=== PATIENT | male | born 1940 | race Hispanic/Latino ===

== ENCOUNTER → 2018-07-20 | Day surgery (SDC) | payer MEDICARE ==
[2018-07-19 12:33] LABS: BASOPHILS % 0.6 % (0.0-1.0); EOSINOPHILS # (AUTO) 0.3 (0.0-0.4); EOSINOPHILS % 4.4 % (0.0-6.0); HEMATOCRIT 39.2 % (38.2-49.6); HEMOGLOBIN 12.8 g/dL (14.0-18.0); LYMPHOCYTES # (AUTO) 1.2 (1.0-3.2); MEAN CORPUSCULAR HEMOGLOBIN 32.4 pg (28-32); MEAN CORPUSCULAR HGB CONC 32.7 g/dL (31-35); MEAN CORPUSCULAR VOLUME 99.2 fL (81-99); MONOCYTES # (AUTO) 0.5 (0.2-0.8); MONOCYTES % 8.4 % (4.4-11.3); NEUTROPHILS # (AUTO) 4.4 (2.1-6.9); NEUTROPHILS % 68.3 % (38.7-80.0); PLATELET COUNT 181 x10e3/uL (140-360); RED BLOOD COUNT 3.95 x10e6/uL (4.3-5.7); RED CELL DISTRIBUTION WIDTH 14.2 % (11.7-14.4)
[2018-07-19 12:56] LABS: ANION GAP 12.2 mmol/L (8-16); BLOOD UREA NITROGEN 11 mg/dL (7-26); BUN/CREATININE RATIO 14 (6-25); CALCIUM 9.7 mg/dL (8.4-10.2); CARBON DIOXIDE 27 mmol/L (22-29); CHLORIDE 104 mmol/L (98-107); CREATININE, SERUM 0.81 mg/dL (0.72-1.25); EST GLOMERULAR FILTRATION RATE > 60 ML/MIN (60-); GLUCOSE 91 mg/dL (74-118); POTASSIUM 4.2 mmol/L (3.5-5.1); SODIUM 139 mmol/L (136-145)
--- NOTE | 2018-07-19 14:39 | Diagnostic Imaging Report ---
ADDENDUM #1 ADDENDUM: Opacity in the left lower lobe likely subsegmental atelectasis. However follow-up chest radiograph is suggested to assess for resolution given focal appearance. Signed by: Dr. Mariaelena Mcduffie MD on 07/19/2018 2:41 PM ORIGINAL REPORT EXAMINATION: CHEST 2 VIEWS INDICATION: Pre-admit. COMPARISON: None FINDINGS: TUBES and LINES: None. LUNGS: Lungs are well inflated. There is patchy opacity in the left lower lobe, likely atelectasis. No evidence of pulmonary edema. PLEURA: No pleural effusion or pneumothorax. HEART AND MEDIASTINUM: There is mild cardiomegaly. Status post CABG. Atherosclerotic calcifications of the aorta. BONES AND SOFT TISSUES: No acute osseous abnormality. Status post median sternotomy. UPPER ABDOMEN: No free air under the diaphragm. IMPRESSION: Mild cardiomegaly without evidence of pulmonary edema. Signed by: Dr. Mariaelena Mcduffie MD on 07/19/2018 2:36 PM
--- NOTE | 2018-07-19 14:43 | Diagnostic Imaging Report ---
Exam: KUB-2 views Clinical History: Preoperative, urologic surgery. Comparison: None. Findings: Nonobstructive bowel gas pattern. No evidence of free intraperitoneal air. There is a 2 mm calcification overlying the left upper kidney. Atherosclerotic vascular calcifications. Degenerative changes of the visualized spine. No acute bony abnormality. Impression: Possible 2 mm left upper pole renal stone. No evidence of bowel obstruction. Signed by: Dr. Mariaelena Mcduffie MD on 07/19/2018 2:40 PM
[~2018-07-20] MED LIST: AMIODARONE HCL200 MG; AMLODIPINE BESYL5 MG PO; ARICEPT5 MG PO; ATORVASTATIN CA20 MG PO; ATROPINE SULFATE 1 MG/ML VIAL ONE; BELLADONNA/OPIUM 60 MG SUPP PR ONE; CLOPIDOGREL75 MG PO; DEXAMETHASONE SOD PHOS INJ 4 MG/ML VIAL ONE; ETOMIDATE 2 MG/ML 10 ML INJ IV ONE; FENTANYL CITRATE/PF 100MCG/2 ML INJ ONE; FINASTERIDE5 MG PO; FLOMAX0.4 MG PO; GABAPENTIN300 MG PO; GLIPIZIDE5 MG PO; GLYCOPYRROLATE INJ 1MG/ 5 ML SYR ONE; IOPAMIDOL 610MG/1ML 300 MG/ML VIAL IV ONE; LEVOFLOXACIN 500MG/D5W 100ML 100 ML IV ONE; LEVOTHYROXINE75 MCG PO; LIDOCAINE HCL 2% LOCAL INJ 5 ML SDV VIAL INJ ONE; LISINOPRIL10 MG PO; METFORMIN HCL500 MG PO; METOPROLOL SUCC50 MG PO; ONDANSETRON HCL INJ 2MG/ML 2ML 2 MG/ML VIAL ONE; OXYBUTYNIN CHLOR5 MG PO; PHENYLEPHRINE HCL 1% 10 MG/ML VIAL ONE; PIOGLITAZONE HC45 MG PO; PROPOFOL IV EMULSION 10 MG/ML 20 ML VIAL ONE; SEVOFLURANE INHAL SOLN 250 ML PEN BTL ONE
--- OUTSIDE RECORDS SUMMARY | 2018-07-20 05:08 | XMS REPORT ---
Author Author [facility] Address Unknown Phone Unavailable Care Team Providers Care Chaser Apprentice Name Role Phone ALONDRA MAGUIRE Unavailable Unavailable Payers Payer Name Policy Type Policy Number Effective Date Expiration Date Problems This patient has no known problems. Allergies, Adverse Reactions, Alerts Allergy Name Allergy Type Status Severity Reaction(s) Onset Date Inactive Date Treating Clinician Comments Penicillins DA Active U 2016-06-20 00:00:00 Medications This patient has no known medications. Results Test Description Test Time Test Comments Text Results Atomic Results Result Comments ABDOMEN-1VIEW (KUB) 2018-07-19 14:37:00 [place] [id number] Patient Name: KARO WARREN MR #: [id number] : 1940 Age/Sex: 77/M Req #: [id number] Adm Physician: Ordered by: ALONDRA MAGUIRE MD Report #: [id number] Location: OR Room/Bed: Procedure: [id number] DX/ABDOMEN-1VIEW (KUB) Exam Date: 07/19/18 Exam Time: 1230 REPORT STATUS: Signed Exam: KUB-2 views Clinical History: Preoperative, urologic surgery. Comparison: None. Findings: Nonobstructive bowel gas pattern. No evidence of free intraperitoneal air. There is a 2 mm calcification overlying the left upper kidney. Atherosclerotic vascular calcifications. Degenerative changes of the visualized spine. No acute bony abnormality. Impression: Possible 2 mm left upper pole renal stone. No evidence of bowel obstruction. Signed by: Dr. Sugar Hernández MD on 07/19/2018 2:40 PM Dictated By: SUGAR HERNÁNDEZ MD 1440 Transcribed By: HIRAL on 07/19/18 1440 COPY TO: ALONDRA MAGUIRE MD CHEST 2 VIEWS 2018-07-19 14:32:00 [place] [address] Patient Name: KARO WARREN MR #: [id number] : 1940 Age/Sex: 77/M Req #: [id number] Adm Physician: Ordered by: ALONDRA MAGUIRE MD Report #: [id number] Location: OR Room/Bed: Procedure: [id number] DX/CHEST 2 VIEWS Exam Date: 07/19/18 Exam Time: 1230 REPORT STATUS: Signed ADDENDUM #1 ADDENDUM: Opacity in t he left lower lobe likely subsegmental atelectasis. However follow-up chest radiograph is suggested to assess for resolution given focal appearance. Signed by: Dr. Sugar Hernández MD on 07/19/2018 2:41 PM ORIGINAL REPORT EXAMINATION: CHEST 2 VIEWS INDICATION: Pre-admit. COMPARISON: None FINDINGS: TUBES and LINES: None. LUNGS: Lungs are well inflated. There is patchy opacity in the left lower lobe, likely atelectasis. No evidence of pulmonary edema. PLEURA: No pleural effusion or pneumothorax. HEART AND MEDIASTINUM: There is mild cardiomegaly. Status post CABG. Atherosclerotic calcifications of the aorta. BONES AND SOFT TISSUES: No acute osseous abnormality. Status post median sternotomy. UPPER ABDOMEN: No free air under the diaphragm. IMPRESSION: Mild cardiomegaly without evidence of pulmonary edema. Signed by: Dr. Sugar Hernández MD on 07/19/2018 2:36 PM Dictated By: SUGAR HERNÁNDEZ MD 1441 Transcribed By: HIRAL on 07/19/18 1436 COPY TO: ALONDRA MAGUIRE MD
[2018-07-20 09:40] VITALS: BP 131/86
--- NOTE | 2018-08-18 07:42 | Operative Report ---
DATE OF PROCEDURE: 07/20/2018 SURGEON: Jacoby Carlson MD PREOPERATIVE DIAGNOSES: 1. Left nephrolithiasis. 2. Obstructive benign prostatic hyperplasia. 3. Incomplete bladder emptying. POSTOPERATIVE DIAGNOSES: 1. Left nephrolithiasis. 2. Obstructive benign prostatic hyperplasia. 3. Incomplete bladder emptying. OPERATION PERFORMED: 1. Staged left-sided extracorporeal shockwave lithotripsy (separate procedure performed for the left-sided nephrolithiasis). 2. Cystourethroscopy with bilateral ureteral catheterization and retrograde ureteropyelography (separate procedure performed for obstructive benign prostatic hyperplasia and incomplete bladder emptying). 3. Interpretation of retrograde ureteropyelography. 4. Supervision of fluoroscopy, no radiologist present. ANESTHESIA: General. COMPLICATIONS: None. CLINICAL SUMMARY: Mariano Garcia is a 77-year-old man with obstructive BPH and incomplete bladder emptying. The patient is brought to the operating room for the above procedures. He is aware of the risks of bleeding, infection, injury to adjacent structures, need for additional procedures and elected to proceed. Anesthesia decided to proceed with surgery today; however, the Anesthesia did recommend that he have cardiac followup as he should probably have treatment for his aortic stenosis. OPERATIVE PROCEDURE IN DETAIL: Informed consent was verified. Mariano Garcia was properly identified, taken to the operating room, placed on the lithotripsy table in supine position. Anesthesia was uneventfully begun. The patient's left nephrolithiasis was localized with biplanar fluoroscopy. A total of 3000 shocks were delivered, distributed among the 4 mm upper pole stone, 4 mm mid pole stone and a 3 mm lower pole stone. Gating was required for the procedure. The patient was then carefully and gently repositioned in dorsal lithotomy position with all pressure points well padded. His genitalia were prepared and draped in usual sterile fashion. The cystoscope sheath with the visual obturator in place was atraumatically inserted in the patient's urethra and was guided down the unremarkable urethra, through the normal sphincteric region and through the prostate bed, which exhibited significant for visual obstructing BPH. We entered the patient's bladder, which exhibited trabeculations, no tumors, no stones, no suspicious lesions. The ureteral catheter was used to cannulate each ureter and retrograde ureteropyelograms were performed. Interpretation of retrograde ureteropyelography: Contrast was instilled in a retrograde fashion bilaterally. There was a bifid collecting system on the right, the right side exhibited no stones, no tumors, no stones, no diverticula. Unobstructed drainage was observed fluoroscopically. 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 At the level of the kidney, there were some filling defects which corresponded to the location where we performed lithotripsy. There was no hydronephrosis and unobstructed drainage was observed fluoroscopically. The patient's bladder was drained and the cystoscope was withdrawn. The belladonna and opium suppository were placed revealing a 40 g prostate, smooth and non-fluctuant without any nodules. The patient was then uneventfully reversed from anesthesia and taken to the recovery room in stable condition. Explicit postop instructions were given. We will follow the patient up in the office on an ongoing basis. The patient's family recommended to proceed with seeing their arcade technician to see if any intervention is required for the patient's aortic stenosis. MD JOSUE Rivero/LAUREN /[id number]
== END | disposition home or self-care (01) ==
LOC: OR 05:00
PROVIDERS: ATTEND Urology
DX: N20.0 Calculus of kidney (principal); N40.1 Benign prostatic hyperplasia with lower urinary tract symptoms; N13.8 Other obstructive and reflux uropathy; R39.14 Feeling of incomplete bladder emptying; R35.1 Nocturia; N32.81 Overactive bladder; N32.89 Other specified disorders of bladder; Q62.5 Duplication of ureter; I35.0 Nonrheumatic aortic (valve) stenosis; I49.9 Cardiac arrhythmia, unspecified; I25.810 Atherosclerosis of coronary artery bypass graft(s) without angina pectoris; E11.9 Type 2 diabetes mellitus without complications; I10 Essential (primary) hypertension; E78.5 Hyperlipidemia, unspecified; H91.90 Unspecified hearing loss, unspecified ear; F03.90 Unspecified dementia, unspecified severity, without behavioral disturbance, psychotic disturbance, mood disturbance, and anxiety; Z88.0 Allergy status to penicillin; Z01.810 Encounter for preprocedural cardiovascular examination; Z01.812 Encounter for preprocedural laboratory examination; Z01.818 Encounter for other preprocedural examination; Z79.02 Long term (current) use of antithrombotics/antiplatelets; Z79.84 Long term (current) use of oral hypoglycemic drugs; Z68.30 Body mass index [BMI] 30.0-30.9, adult; Z95.1 Presence of aortocoronary bypass graft; Z84.1 Family history of disorders of kidney and ureter
CPT/HCPCS: 36415 ×2; 50590; 71046; 74018; 80048; 82948; 85025; 93005; C1758; J0461; J1100; J1956; J2001; J2370; J2405; J2704; J3490; Q9967